=== PATIENT | male | born 1930 | race African-American/Black ===

== ENCOUNTER 2016-11-28 20:28 | Inpatient (IN) | payer OTHER ==
--- NOTE | ~2016-11-28 | HP ---
History And Physical [id number] [facility] [place]. [address] NAME: LUIS ENRIQUE HERNANDEZ : 28 STATUS : ADM IN PAT#: [id number] AGE: 86 ADM/REG DATE : 11/28/16 MR#: [id number] REPORT SERV DATE: 11/29/16 DICTATED BY: QUINTON MCFARLAND DATE: 11/28/16 REPORT STATUS : Draft TRANSCRIBED BY: MODL DATE: 11/28/16 DATE OF ADMISSION: 11/28/2016 CHIEF COMPLAINT: Blood in stool x5 days. HISTORY OF PRESENT ILLNESS: The patient is a very pleasant 86-year-old male, still fairly active, who comes in after having multiple loose bowel movements with blood at the insistence of daughter. HISTORY OF PRESENT ILLNESS: The patient is, again, 86-year-old very pleasant male with history of stents, seen by Dr. Jurado for many years. Most recent stent is approximately four months ago with additional history of hypertension. Additionally, he has had screening colonoscopy with Dr. Lang, who has been doing well up until about five days ago, during which the patient started noticing having bloody stool. The patient did have a little bit of dizziness. The patient reports that he went to his PCP and was held off aspirin, placed on Protonix, and had outpatient followup for Dr. Lang next week. The patient continued to have bloody stool throughout the last three to four days, and daughter, who heard about this, decided to bring the patient into emergency room. The patient denied having any chest pain, but did have occasional dizziness and was reporting that symptoms have been almost constant, although blood in stool had been mixed brown with streaks of blood, intermittent moderate severity. Did have drop in H and H from prior H and H's collected, but blood pressure and vital signs have been relatively stable. The patient denies any chest pain, nausea, vomiting, diarrhea, constipation, shortness of breath, or chills, but the patient is wearing a sweater, but does not feel cold. No wheezing or swelling. The patient reports that he does get little bit more dizzy with exertion, which is also improved with rest. Symptoms are fairly resolved. At this point, the patient actually feels like he wants to go home. ADDITIONAL REVIEW OF SYSTEMS: GENERAL: No fever or chills. EYES: No visual changes or pain. ENT: No sore throat or congestion. NEURO: No headache or confusion. Does have old stroke symptoms on right side when he was 1 years old, but he is fairly compensated from this. SKIN: No rashes or bruising. RESPIRATORY: No shortness of breath or cough currently. CV: No chest pain or edema. GI: No nausea, vomiting, but does have blood in stools. : No dysuria or hematuria. MUSCULOSKELETAL: No myalgias or arthralgias. ENDO: No fatigue. HEME: No bleeding on skin or bruising. IMMUNOLOGIC: No rhinorrhea. PSYCH: No anxiety or confusion. PAST MEDICAL HISTORY: Stents approximately four months ago, hypertension. 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 History And Physical [address] [address] NAME: LUIS ENRIQUE HERNANDEZ : 28 STATUS : ADM IN [facility]#: [id number] AGE: 86 ADM/REG DATE : 11/28/16 MR#: [id number] REPORT SERV DATE: 11/29/16 DICTATED BY: QUINTON MCFARLAND DATE: 11/28/16 REPORT STATUS : Draft TRANSCRIBED BY: CATHERINE DATE: 11/28/16 SURGERIES: Has had stents and vessel bypass by Dr. Jurado per the patient. SOCIAL HISTORY: No smoking. Rare alcohol. No illicits. 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 FAMILY HISTORY: Heart disease. ALLERGIES: NO KNOWN DRUG ALLERGIES. HOME MEDICATIONS: Has been off aspirin since Saturday, approximately about 48 hours. On azilsartan/chlorthalidone combination pill, Avodart, multivitamin, Bystolic, Protonix, Crestor, and Flomax. IMAGING: EKG shows bifascicular block, right bundle, second degree. Questionable AV block. Rate of 54. LABORATORY DATA: Lactate 1.2. Sodium 142, potassium 3.5, BUN and creatinine 30 and 1.67, glucose 105, troponin 1.2. Magnesium 2.8, calcium 9.0, WBC 7.9, H and H 9.3 and 27.3, platelets 116. INR 1.2. PA and lateral, hyperinflation. No acute cardiopulmonary abnormality. ASSESSMENT AND PLAN: 1. Acute gastrointestinal bleed. 2. Troponin elevation, NSTEMI versus type 2 demand mismatch. 3. Acute kidney injury. 4. Hypertension. 5. Anemia by cytopenia. 6. Questionable second-degree AV block on EKG. PLAN: 1. For acute GI bleed, daily bloody BMs time on the last five days. We will place on Protonix drip. Sees Dr. Lang. Has had prior screening colonoscopy, otherwise at this time is currently stable. I have discussed the patient with Dr. Bey in ICU. We will monitor closely on telemetry, as the patient is still functional, fairly asymptomatic at this time with low threshold for ICU transfer if change in vital signs or acute drop in hematocrit. We will place on again monitor with Protonix drip. No prior similar episodes. Not on active blood thinning medications at home except for baby aspirin. 2. Troponin elevation. Questionable NSTEMI versus type 2 demand mismatch. The patient has already stopped aspirin on Saturday due to acute bleed. Has denied any chest pain during this episode over the last week. Has had stents approximately four months ago. We will consult Dr. Jurado. He does have bifascicular block pattern on EKG. Questionable second degree. We will defer to Dr. Jurado's guidance for additional assistance in the setting of acute bleed, be cautious with additional anticoagulation at this time in the setting of ELISABETH. 3. ELISABETH. IV fluids. Monitor. Hold nephrotoxins. Check urine lytes and treat above. History And Physical [address] [address] NAME: LUIS ENRIQUE HERNANDEZ : 28 STATUS : ADM IN PAT#: [id number] AGE: 86 ADM/REG DATE : 11/28/16 MR#: [id number] REPORT SERV DATE: 11/29/16 DICTATED BY: QUINTON MCFARLAND DATE: 11/28/16 REPORT STATUS : Draft TRANSCRIBED BY: CATHERINE DATE: 11/28/16 4. Hypertension, acceptable. Hold all blood pressure medications. 5. Anemia by cytopenia. Monitor. Type and cross. Transfusion criteria if hemoglobin less than 8 for cardiac protection. 6. Second-degree AV block on EKG. Monitor on tele. Repeat EKG in a.m. We will defer to Dr. Jurado's guidance if EP evaluation required and rhythm pattern confirmed on repeat EKGs. Guarded. Discussion with the patient and family. DDN/MODL Quinton Mcfarland MD / [id number] CC: Izzy Michael M.D.
--- NOTE | ~2016-11-28 | DS ---
Discharge Summary [facility] [address] [place]. [address] NAME: LUIS ENRIQUE HERNANDEZ : 28 STATUS : DIS IN PAT#: [id number] AGE: 86 ADM/REG DATE : 11/28/16 MR#: [id number] REPORT SERV DATE: 12/02/16 DICTATED BY: POONAM GUZMAN DATE: 12/01/16 REPORT STATUS : Draft TRANSCRIBED BY: MODL DATE: 12/01/16 ADMISSION DATE: 11/28/2016 DISCHARGE DATE: 12/01/2016 DISCHARGE DIAGNOSES: 1. Possible gastrointestinal bleed with acute blood loss status post one unit of packed red blood cells transfused. No more bleeding episodes during the hospitalization. 2. Severe coronary artery disease. 3. Troponin positive. 4. Peripheral vascular disease. 5. Chronic kidney disease at baseline. 6. Second-degree atrioventricular block. CONSULTANTS: 1. Ruel Campbell M.D. 2. Dejuan Jurado M.D. HISTORY OF PRESENT ILLNESS: This is an 86-year-old male patient, who came to the hospital with loose stool and dark stool. Please see dictated H and P. HOSPITAL COURSE: He was admitted to hospital with anemia and possible GI bleeding, and also Hemoccult was positive in the emergency room. However, Dr. Jurado said he has a category 4 risk for anesthesia, so we decided to be on conservative management for this patient. Dr. Campbell was consulted. However, because of the risk, no procedure was performed. He was given one unit of blood at the beginning of the hospitalization; after that, he did not have any more further bleeding or worsening anemia on the lab work either. Therefore, the patient decided to be discharged to home in stable condition. He did have a second-degree AV block, on the discharge we are going to stop the Bystolic 5 mg once a day due to a second-degree AV block. Other than that, he will continue all these medications. DISPOSITION: The patient is discharged to home in stable condition. DISCHARGE MEDICATIONS: Same as home medication, but we discontinued the Bystolic due to the second-degree AV block. EKL/MODL Poonam Guzman M.D. Discharge Summary [address] [place] [address] NAME: LUIS ENRIQUE HERNANDEZ : 28 STATUS : DIS IN PAT#: [id number] AGE: 86 ADM/REG DATE : 11/28/16 MR#: [id number] REPORT SERV DATE: 12/02/16 DICTATED BY: POONAM GUZMAN DATE: 12/01/16 REPORT STATUS : Draft TRANSCRIBED BY: JUDITHL DATE: 12/01/16 / [id number] CC: Izzy Michael M.D.
--- NOTE | ~2016-11-28 | CN ---
Consultation Report [facility] [address] [place]. [address] NAME: LUIS ENRIQUE HERNANDEZ : 28 STATUS : ADM IN [facility]#: [id number] AGE: 86 ADM/REG DATE : 11/28/16 MR#: [id number] REPORT SERV DATE: 11/29/16 DICTATED BY: FAISAL LINDSEY DATE: 11/29/16 REPORT STATUS : Draft TRANSCRIBED BY: MODL DATE: 11/29/16 GI CONSULTATION DATE OF CONSULTATION: 11/29/2016 REASON FOR CONSULTATION: Evaluation and management of GI bleeding. HISTORY OF PRESENT ILLNESS: Mr. Hernandez is an 86-year-old male patient, who presented to [facility] on 11/28/2016 with a chief complaint of GI bleeding since 11/24/2016. He states that he initially had eaten something that did not agree with his stomach. He then started having diarrhea. No abdominal pain. He states he passed black stools and that turned to red. He had been on aspirin, which he called his primary care physician, told him to hold it, and put him on Protonix, and was supposed to see as reported in the chart, Dr. Lang; however, I cannot find any, where in our system we have never seen this patient. His daughter is present at the bedside. She is actually unsure of what GI physician he has seen in the past or whom he was supposed to see next week. The daughter subsequently brought him in secondary to continuance of bleeding. He has had some occasional dizziness, but he denies chest pain. No shortness of breath. His hemoglobin last year in 03/2016 was normal at 13.3, on admission his hemoglobin was 9.3, and it dropped to 8.0. He has been transfused two units of packed red blood cells and is increased to 10.3. I have discussed with the patient as well as the patient's daughter, who is present at the bedside, EGD and colonoscopy. Risks, benefits, alternatives, and complications were detailed for them to include, but not limited to risk of bleeding, perforation, infection, reaction to medication, as well as cardiac and pulmonary side effects. They are agreeable to proceed if felt necessary. I have spoken with the patient's primary care nurse, Irene, who has spoke with Dr. Jurado by telephone regarding orders for blood to get cardiac clearance from Dr. Jurado, however after she spoke with him on the telephone, he states that he cannot give at this time, and we need to re-evaluate the patient in the morning. PAST MEDICAL HISTORY: Positive for hypertension, CVA, coronary artery disease, chronic kidney disease stage III, carotid disease, peripheral vascular disease. PAST SURGICAL HISTORY: Cardiac bypass as well as cardiac stenting. SOCIAL HISTORY: No tobacco, rare alcohol. He denied any illicits. He is retired and lives independently. Daughter is present at the bedside. FAMILY HISTORY: Noncontributory from a GI standpoint. ALLERGIES: HE HAS NO KNOWN ALLERGIES. HOME MEDICATIONS: Aspirin, Avodart, multivitamin, Bystolic, Protonix, Crestor, and Flomax. REVIEW OF SYSTEMS: Consultation Report [place] [id number] [place]. [address] NAME: LUIS ENRIQUE HERNANDEZ : 28 STATUS : ADM IN [facility]#: [id number] AGE: 86 ADM/REG DATE : 11/28/16 MR#: [id number] REPORT SERV DATE: 11/29/16 DICTATED BY: FAISAL LINDSEY DATE: 11/29/16 REPORT STATUS : Draft TRANSCRIBED BY: CATHERINE DATE: 11/29/16 A 10-point review of systems obtained, pertinent positives addressed in the history of present illness. PERTINENT LABORATORY DATA: Sodium 146, potassium 3.7, BUN is 27, creatinine is 1.41. White count is 10.4, hemoglobin 8, hematocrit 23.4, platelet count 106. Troponin is 0.89. No abdominal imaging has been obtained. PHYSICAL EXAMINATION: VITAL SIGNS: Temperature is 98.0, pulse is 67, respirations 18, blood pressure 130/60. NEUROLOGIC: Reveals an alert, male, resting in bed. No focal deficits. GENERAL: Cooperative, in no apparent distress. Awake, alert, and oriented x3. HEAD, EARS, EYES, NOSE, AND THROAT: Anicteric. Pupils are equal, round, reactive to light and accommodation. NECK: No JVD. No palpable nodes. Supple. LUNGS: Decreased throughout with normal respiratory effort exhibited. CARDIOVASCULAR SYSTEM: Regular rate and rhythm. ABDOMEN: Soft, nondistended. No tenderness to palpation. No rebound or guarding elicited on exam. SKIN: Warm, dry, and intact. ASSESSMENT AND PLAN: 1. Gastrointestinal bleed, dark as well as bright red blood. 2. Elevated troponin, qip-JE-[id number] elevation myocardial infarction, type 2 demand. 3. Coronary artery disease with a history of carotid disease. 4. Acute blood loss anemia. 5. Chronic kidney disease, stage III. PLAN: 1. We will await cardiac clearance for the patient to undergo EGD and colonoscopy. 2. Monitor H and H. 3. Check stool studies. 4. Clear liquid diet at present. We will follow. MARIANNA/CATHERINE Tresckow GAB Hanna / [id number] CC: Izzy Michael M.D.
[2016-11-28 17:40] LABS: BASOPHILS 0.6 %; BASOPHILS ABSOLUTE 0.05 10/3/uL (0.0-0.16); EOSINOPHILS 3.8 %; ER CBC TAT 0 Hrs 07 Mins; HEMATOCRIT 27.3 % (40.0-51.0); HEMOGLOBIN 9.3 g/dL (13.6-17.8); IMMATURE GRANULOCYTES 0.1 %; IMMATURE GRANULOCYTES ABSOLUTE 0.01 10/3/uL (0.0-0.11); LYMPHOCYTES 20.9 %; LYMPHOCYTES ABSOLUTE 1.65 10/3/uL (0.67-4.30); MANUAL DIFF NO %; MEAN CORPUS HGB CONC 34.1 g/dL (32.0-36.0); MEAN CORPUSCULAR HEMOGLOB 31.1 pg (26.0-34.0); MEAN CORPUSCULAR VOLUME 91.3 fL (80-100); MEAN PLATELET VOLUME 11.6 fL (9.2-13.0); MONOCYTES 6.8 %; MONOCYTES ABSOLUTE 0.54 10/3/uL (0.21-1.20); NEUTROPHILS 67.8 %; NEUTROPHILS ABSOLUTE 5.34 10/3/uL (2.02-8.40); PLATELET COUNT 116 10/3/uL (150-400); RBC DISTRIBUTION WIDTH 13.8 % (12.0-16.0); RED CELL COUNT 2.99 10/6/uL (4.7-6.1); WHITE BLOOD CELLS 7.9 10/3/uL (4.5-10.5)
[2016-11-28 17:45] LABS: INTERNATIONAL NORMAL RATI 1.2 UNITS (-); PARTIAL THROMBO TIME 26.8 SEC (22.5-37.2); PROTIME (NOT ORD) 15.1 SEC (12.0-14.5)
[2016-11-28 18:10] LABS: CHLORIDE, SERUM 105 MMOL/L (96-112); CO2 (CARBON DIOXIDE) 29 MMOL/L (24-34); CREATININE 1.67 MG/DL (0.70-1.30); GFR AFRICAN AMERICAN 42 ML/MIN (>=60); GFR NON AFRICAN AMERICAN 36 ML/MIN (>=60); GLUCOSE, SERUM 105 MG/DL (60-99); POTASSIUM, SERUM 3.5 MMOL/L (3.5-5.3); SODIUM, SERUM 142 MMOL/L (135-148)
[2016-11-28 18:12] LABS: BUN (BLOOD UREA NITROGEN) 30 MG/DL (6-23)
[2016-11-28 18:13] LABS: CHEST PAIN PROFILE TAT 0 Hrs 40 Mins
[~2016-11-28 20:28] MED LIST: ASAB PO; AVODART PO; BRILINTA90 MG PO; BYSTOLIC10 MG PO; CENTRUM PO; CENTRUM TAB1 TAB PO; COREG3 PO; CRESTOR10 PO; EDARBYCLOR 40-1 EACH PO; EXFORGE1 TA1 PO; EXFORGE1 TA2 PO; FLOMAX4 PO; MULTIPLE VIT PO; PLAVIX PO; PROTONIX PO
[2016-11-28] MEDS ORDERED: EDARBYCLOR 40-1 EAC1 PO (21:20)
[2016-11-28] MEDS ORDERED: BYSTOLIC5 MG PO (21:29)
[2016-11-29 02:08] LABS: BASOPHILS 0.5 %; BASOPHILS ABSOLUTE 0.05 10/3/uL (0.0-0.16); EOSINOPHILS 3.2 %; EOSINOPHILS ABSOLUTE 0.33 10/3/uL (0.0-0.53); IMMATURE GRANULOCYTES 0.3 %; IMMATURE GRANULOCYTES ABSOLUTE 0.03 10/3/uL (0.0-0.11); LYMPHOCYTES 21.8 %; LYMPHOCYTES ABSOLUTE 2.26 10/3/uL (0.67-4.30); MEAN CORPUS HGB CONC 34.2 g/dL (32.0-36.0); MEAN CORPUSCULAR HEMOGLOB 30.8 pg (26.0-34.0); MEAN PLATELET VOLUME 11.3 fL (9.2-13.0); MONOCYTES 7.2 %; MONOCYTES ABSOLUTE 0.75 10/3/uL (0.21-1.20); NEUTROPHILS ABSOLUTE 6.97 10/3/uL (2.02-8.40); PLATELET COUNT 106 10/3/uL (150-400); RBC DISTRIBUTION WIDTH 13.5 % (12.0-16.0); WHITE BLOOD CELLS 10.4 10/3/uL (4.5-10.5)
[2016-11-29 02:09] LABS: HEMATOCRIT 23.4 % (40.0-51.0); MANUAL DIFF NO %
[2016-11-29 02:22] LABS: BUN (BLOOD UREA NITROGEN) 27 MG/DL (6-23); CALCIUM, SERUM 8.4 MG/DL (8.5-10.4); CHLORIDE, SERUM 112 MMOL/L (96-112); CREATININE 1.41 MG/DL (0.70-1.30); GFR AFRICAN AMERICAN 52 ML/MIN (>=60); GFR NON AFRICAN AMERICAN 44 ML/MIN (>=60); GLUCOSE, SERUM 98 MG/DL (60-99); SODIUM, SERUM 146 MMOL/L (135-148)
[2016-11-29 02:24] LABS: CO2 (CARBON DIOXIDE) 23 MMOL/L (24-34); POTASSIUM, SERUM 3.7 MMOL/L (3.5-5.3); TROPONIN I 0.89 NG/ML (<0.05)
[2016-11-29 10:03] LABS: HEMATOCRIT 29.2 % (40.0-51.0); HEMOGLOBIN 10.3 g/dL (13.6-17.8)
[2016-11-29 13:17] LABS: CREATININE, URINE 41.8 MG/DL
[2016-11-29 17:39] LABS: HEMATOCRIT 29.5 % (40.0-51.0); HEMOGLOBIN 10.2 g/dL (13.6-17.8)
[2016-11-30 02:25] LABS: HEMATOCRIT 28.9 % (40.0-51.0)
[2016-11-30 06:58] LABS: BASOPHILS 0.4 %; BASOPHILS ABSOLUTE 0.04 10/3/uL (0.0-0.16); HEMATOCRIT 29.2 % (40.0-51.0); HEMOGLOBIN 10.2 g/dL (13.6-17.8); IMMATURE GRANULOCYTES 0.2 %; IMMATURE GRANULOCYTES ABSOLUTE 0.02 10/3/uL (0.0-0.11); LYMPHOCYTES 19.2 %; LYMPHOCYTES ABSOLUTE 1.92 10/3/uL (0.67-4.30); MEAN CORPUS HGB CONC 34.9 g/dL (32.0-36.0); MEAN CORPUSCULAR HEMOGLOB 31.2 pg (26.0-34.0); MEAN CORPUSCULAR VOLUME 89.3 fL (80-100); MONOCYTES 7.2 %; MONOCYTES ABSOLUTE 0.72 10/3/uL (0.21-1.20); NEUTROPHILS ABSOLUTE 6.91 10/3/uL (2.02-8.40); PLATELET COUNT 123 10/3/uL (150-400); RBC DISTRIBUTION WIDTH 13.7 % (12.0-16.0)
[2016-11-30 07:01] LABS: MANUAL DIFF NO %; RED CELL COUNT 3.27 10/6/uL (4.7-6.1)
[2016-11-30 07:09] LABS: BUN (BLOOD UREA NITROGEN) 19 MG/DL (6-23); CALCIUM, SERUM 8.4 MG/DL (8.5-10.4); CHLORIDE, SERUM 111 MMOL/L (96-112); CO2 (CARBON DIOXIDE) 26 MMOL/L (24-34); CREATININE 1.37 MG/DL (0.70-1.30); GFR AFRICAN AMERICAN 53 ML/MIN (>=60); GFR NON AFRICAN AMERICAN 46 ML/MIN (>=60); GLUCOSE, SERUM 95 MG/DL (60-99); POTASSIUM, SERUM 3.5 MMOL/L (3.5-5.3); SODIUM, SERUM 146 MMOL/L (135-148)
[2016-11-30 12:00] LABS: HEMATOCRIT 28.6 % (40.0-51.0)
[2016-12-01 05:42] LABS: BASOPHILS 0.6 %; BASOPHILS ABSOLUTE 0.06 10/3/uL (0.0-0.16); EOSINOPHILS 4.9 %; EOSINOPHILS ABSOLUTE 0.48 10/3/uL (0.0-0.53); HEMATOCRIT 29.6 % (40.0-51.0); HEMOGLOBIN 10.3 g/dL (13.6-17.8); IMMATURE GRANULOCYTES 0.1 %; IMMATURE GRANULOCYTES ABSOLUTE 0.01 10/3/uL (0.0-0.11); LYMPHOCYTES 23.6 %; LYMPHOCYTES ABSOLUTE 2.29 10/3/uL (0.67-4.30); MEAN CORPUS HGB CONC 34.8 g/dL (32.0-36.0); MEAN CORPUSCULAR HEMOGLOB 31.3 pg (26.0-34.0); MEAN PLATELET VOLUME 11.7 fL (9.2-13.0); MONOCYTES 7.7 %; MONOCYTES ABSOLUTE 0.75 10/3/uL (0.21-1.20); NEUTROPHILS 63.1 %; NEUTROPHILS ABSOLUTE 6.13 10/3/uL (2.02-8.40); PLATELET COUNT 129 10/3/uL (150-400); RBC DISTRIBUTION WIDTH 13.6 % (12.0-16.0); RED CELL COUNT 3.29 10/6/uL (4.7-6.1); WHITE BLOOD CELLS 9.7 10/3/uL (4.5-10.5)
[2016-12-01 05:46] LABS: MANUAL DIFF NO %
[2016-12-01 05:54] LABS: BUN (BLOOD UREA NITROGEN) 15 MG/DL (6-23); CALCIUM, SERUM 8.8 MG/DL (8.5-10.4); CHLORIDE, SERUM 109 MMOL/L (96-112); CO2 (CARBON DIOXIDE) 28 MMOL/L (24-34); CREATININE 1.48 MG/DL (0.70-1.30); GFR AFRICAN AMERICAN 49 ML/MIN (>=60); GFR NON AFRICAN AMERICAN 42 ML/MIN (>=60); GLUCOSE, SERUM 100 MG/DL (60-99); POTASSIUM, SERUM 3.6 MMOL/L (3.5-5.3); SODIUM, SERUM 143 MMOL/L (135-148)
== END 2016-12-01 13:39 | disposition home or self-care (01) | DRG 377 ==
LOC: ER 20:28 → 5NO 22:52
PROVIDERS: Emergency Medicine; Internal Medicine
PROC: 30233N1 Transfusion of Nonautologous Red Blood Cells into Peripheral Vein, Percutaneous Approach (ICD-10-PCS; principal; 2016-12-01)
DX: K92.2 Gastrointestinal hemorrhage, unspecified (principal); I21.4 Non-ST elevation (NSTEMI) myocardial infarction; N17.9 Acute kidney failure, unspecified; I24.8 Other forms of acute ischemic heart disease; D62 Acute posthemorrhagic anemia; Z95.5 Presence of coronary angioplasty implant and graft; I12.9 Hypertensive chronic kidney disease with stage 1 through stage 4 chronic kidney disease, or unspecified chronic kidney disease; N18.3 Chronic kidney disease, stage 3 (moderate); I44.1 Atrioventricular block, second degree
CPT/HCPCS: 36415; 71020; 80048; 82570; 82962; 83605; 83735; 83935; 84300; 84484; 85014; 85018; 85025; 85610; 85730; 86850; 86900; 86901; 86920; 87328; 87329; 87493; 87493-59; 89055; 93005; 96374; 99291; A9270-GY; C9113; P9016